=== PATIENT | female | born 1970 ===

== ENCOUNTER 2021-05-01 07:09 | Outpatient (CLI) | payer OTHER | END 2021-05-01 07:11 | disposition home or self-care (01) | LOC: NUCLEAR 07:09 | PROVIDERS: ATTEND Internal Medicine Cardiovascular Disease | DX: I10 Essential (primary) hypertension (principal); R07.89 Other chest pain; I25.89 Other forms of chronic ischemic heart disease | CPT/HCPCS: 78452; 93017; A9500 ==